=== PATIENT | male | born 1950 | race Caucasian/White ===

== ENCOUNTER → 2016-12-29 | Outpatient (CLI) | payer MEDICARE, OTHER ==
[2016-12-29 08:15] LABS: Blood Urea Nitrogen 9 mg/dL (9-20); Non-African American GFR(MDRD) >60 (>60 ml/min/1.73 sqM)
--- NOTE | 2016-12-29 11:31 | CT ---
EXAMINATION TYPE: CT abdomen pelvis wo/w con DATE OF EXAM: 12/29/2016 8:53 AM COMPARISON: NONE INDICATION: RUQ abdominal pain-Colicky DLP: 2900 mGycm, Automated exposure control for dose reduction was used. CONTRAST: 100 ml mL of Omnipaque 300. Study performed with Oral Contrast TECHNIQUE: Axial images were obtained from above the diaphragm to the pubic rami in the axial plane a t 5 mm thick sections. Reconstructed images are reviewed on the computer in the coronal plane. FINDINGS: Limited CT sections are obtained the lung bases. The lung bases are clear. CT ABDOMEN: Liver: Normal Spleen: There are a few small calcified granuloma within the spleen. Pancreas: Normal Adrenal glands: The adrenal glands are normal. Gallbladder: Normal Kidneys: No masses are evident. No hydronephrosis is present. There is a 2.3 cm cyst measuring 0 Ho unsfield units which is exophytic from the posterior medial superior right kidney. No additional chuyita l cysts are evident. No renal stones are evident. Aorta: Vascular calcification is within the aorta. Inferior vena cava: Normal. CT PELVIS: Loops of bowel within the abdomen and pelvis are normal. There are loops of bowel which are incom pletely distended or lack oral contrast limiting their evaluation. Appendix: Normal as visualized. Urinary bladder: Normal. Genitourinary structures: Prostate contains calcification Osseous structures: No suspicious lytic or sclerotic lesions. IMPRESSIONS: 1. Exophytic cyst superior medial right kidney 2. No acute abnormality
== END | disposition home or self-care (01) ==
LOC: RADCTMAIN 07:21
PROVIDERS: ATTEND Internal Medicine
DX: N28.1 Cyst of kidney, acquired (principal); R10.31 Right lower quadrant pain; R10.2 Pelvic and perineal pain
CPT/HCPCS: 82565; 84520; 74178; Q9967

== ENCOUNTER → 2017-03-21 | Outpatient (CLI) | payer MEDICARE, OTHER ==
[2017-03-21 13:23] LABS: Blood Urea Nitrogen 8 mg/dL (9-20); Non-African American GFR(MDRD) >60 (>60 ml/min/1.73 sqM)
--- NOTE | 2017-03-21 15:28 | CT ---
EXAMINATION TYPE: CT pelvis w con DATE OF EXAM: 03/21/2017 3:06 PM COMPARISON: CT abdomen pelvis 29 December 2016 HISTORY: RLQ pain CT DLP: 625.4 mGycm Automated exposure control for dose reduction was used. TECHNIQUE: Helical acquisition of images from the lung bases through the pelvis have been completed. CONTRAST: Performed with Oral Contrast and with IV Contrast, patient injected with 100 mL of Omnipaque 300. FINDINGS: The exophytic cyst at the upper pole of the right kidney is again noted. Visualized portions of the p ancreas, left kidney and right kidney show no definite abnormality. There is no bowel obstruction. Th e appendix is normal. There is nonspecific thickening of the sigmoid colon wall, this could be due to lack of distention or muscular hypertrophy, cannot exclude a mucosal lesion. Diverticular changes ar e also noted associated with the colon. There is no pelvic adenopathy, no evident hernia. No free flu id within the pelvis. Urinary bladder is contracted but shows a thickened wall. Prostate is enlarged and shows associated calcifications. Degenerative disc changes are present in the lower lumbar spine, there is a spinal curvature. Multilevel facet arthropathy changes are also present. Suspect spinal s tenosis at L4-5, there is retrolisthesis grade 1 L4-5. IMPRESSION: FINDINGS SUGGEST CHRONIC BLADDER OUTLET OBSTRUCTION DUE TO PROSTATIC HYPERTROPHY. 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 SCOLIOSIS. DIVERTICULOSIS. DIFFICULT TO EXCLUDE A MUCO DENTON LESION WITHIN THE COLON, CONSIDER BOWEL SURVEILLANCE IF THIS HAS NOT BEEN PERFORMED. NORMAL APPEN DANIA.
== END | disposition home or self-care (01) ==
LOC: RADCTMAIN 12:41
PROVIDERS: ATTEND Internal Medicine
DX: R10.2 Pelvic and perineal pain (principal); K57.90 Diverticulosis of intestine, part unspecified, without perforation or abscess without bleeding; N50.819 Testicular pain, unspecified
CPT/HCPCS: 72193; 82565; 84520

== ENCOUNTER → 2017-07-20 | Outpatient (CLI) | payer MEDICARE, OTHER ==
--- NOTE | 2017-07-21 09:07 | XR ---
EXAMINATION TYPE: XR chest 2V DATE OF EXAM: 07/20/2017 COMPARISON: NONE TECHNIQUE: PA and lateral views submitted. HISTORY: Cough FINDINGS: The lungs are clear and there is no pneumothorax, pleural effusion, or focal pneumonia. Hypertrophi c and degenerative change of the spine. Hyperinflation suggests COPD. No overt failure. Chronic appea ring rib deformity seen. Arthropathy of the shoulders and biapical pleural thickening. IMPRESSION: 1. No acute process.
== END | disposition home or self-care (01) ==
LOC: RADXRMAIN 16:00
PROVIDERS: ATTEND Internal Medicine
DX: R05 Cough (principal); Z86.79 Personal history of other diseases of the circulatory system
CPT/HCPCS: 71020; 93005

== ENCOUNTER → 2017-07-29 | Outpatient (CLI) | payer MEDICARE, OTHER ==
--- NOTE | 2017-07-29 16:27 | US ---
EXAMINATION TYPE: US thyroid st tissue head/neck DATE OF EXAM: 07/29/2017 COMPARISON: NONE CLINICAL HISTORY: E04.9 Goiter. GLAND SIZE: Right Lobe: 4.6 x 2.0 x 1.5 cm Overall Parenchyma: homogenous Left Lobe: 4.4 x 1.3 x 1.0 cm Overall Parenchyma: homogeneous Isthmus Thickness: 0.5 cm NODULES RIGHT: # of nodules measured on right: 0 LEFT: # of nodules measured on left: 0 ISTHMUS: # of nodules measured in the isthmus: 0 Bilateral neck scanned, no evidence of lymphadenopathy. IMPRESSION: Slightly prominent size of the homogeneous thyroid gland with no discrete nodule.
--- NOTE | 2017-07-30 13:20 | ECHOF ---
Referral Reason:PALPITATION ABN ECG MEASUREMENTS -------- HEIGHT: 180.3 cm WEIGHT: 90.7 kg BP: 160/92 RVIDd: 3.7 cm (< 3.3) IVSd: 1.1 cm (0.6 - 1.1) LVIDd: 4.1 cm (3.9 - 5.3) LVPWd: 1.1 cm (0.6 - 1.1) IVSs: 1.7 cm LVIDs: 2.5 cm LVPWs: 1.6 cm LAESV Index (A-L): 19.65 ml/m Ao Diam: 3.8 cm (2.0 - 3.7) AV Cusp: 1.1 cm (1.5 - 2.6) LA Diam: 2.8 cm (2.7 - 3.8) MV E Azael: 0.82 m/s MV DecT: 249 ms MV A Azael: 0.58 m/s MV E/A Ratio: 1.41 AR PHT: 379 ms RAP: 5.00 mmHg RVSP: 38.03 mmHg FINDINGS -------- Sinus rhythm. This was a technically adequate study. The left ventricular size is normal. Left ventricular wall thickness is normal. Overall left ventricular systolic function is normal with, an EF between 60 - 65 %. The right ventricle is normal in size and function. Normal LA size by volume 22+/-6 ml/m2. The right atrium is normal in size. Aortic valve is trileaflet and is mildly thickened. There is mild aortic regurgitation. There is no evidence of aortic stenosis. Normal appearing mitral valve. There is trace mitral regurgitation. Mild tricuspid regurgitation present. There is borderline pulmonary artery hypertension. The right ventricular systolic pressure, as measured by Doppler, is 38.03mmHg. The pulmonic valve was not well visualized. The aortic root size is normal. Normal inferior vena cava with normal inspiratory collapse consistent with estimated right atrial pressure of 5 mmHg. The pericardium is normal. There is no pericardial effusion. CONCLUSIONS -------- 1. Sinus rhythm. 2. There is borderline pulmonary artery hypertension. 3. The right ventricular systolic pressure, as measured by Doppler, is 38.03mmHg. 4. The aortic root size is normal. 5. This was a technically adequate study. 6. The left ventricular size is normal. 7. Overall left ventricular systolic function is normal with, an EF between 60 - 65 %. 8. Normal LA size by volume 22+/-6 ml/m2. 9. Aortic valve is trileaflet and is mildly thickened. 10. There is mild aortic regurgitation. 11. There is trace mitral regurgitation. 12. Mild tricuspid regurgitation present. [employer] CAR[employer] AGENT: Prasanna Escobedo RDCS
--- NOTE | 2017-08-03 11:20 | P.ARTDOP ---
Arterial Doppler LOWER EXTREMITY ARTERIAL DOPPLER: DATE OF SERVICE: 07/29/2017 Reason for study: Not given. Doppler waveforms: Multiphasic bilaterally throughout. Pulse volume recording: Normal configuration. Pressure gradients: None. Ankle-brachial indices: Greater than 1 bilaterally. Toe pressures: [] on the right, [] on the left Impression: Normal study.
== END | disposition home or self-care (01) ==
LOC: RADUSWWP 14:40
PROVIDERS: ATTEND Internal Medicine
DX: I34.0 Nonrheumatic mitral (valve) insufficiency (principal); I27.2 Other secondary pulmonary hypertension; R59.0 Localized enlarged lymph nodes; R10.2 Pelvic and perineal pain; I73.9 Peripheral vascular disease, unspecified; E04.9 Nontoxic goiter, unspecified
CPT/HCPCS: 76536; 93306; 93923

== ENCOUNTER 2018-11-20 12:33 | Emergency (ER) | payer MEDICARE, OTHER ==
[2018-11-20 14:00] VITALS: RESP 18
[2018-11-20 15:25] LABS: ALT 44 U/L (21-72); AST 40 U/L (17-59); Albumin 4.5 g/dL (3.5-5.0); Alkaline Phosphatase 50 U/L (38-126); Amylase 68 U/L (30-110); Anion Gap 7 mmol/L; Blood Urea Nitrogen 13 mg/dL (9-20); Calcium 9.2 mg/dL (8.4-10.2); Carbon Dioxide 25 mmol/L (22-30); Chloride 107 mmol/L (98-107); Glucose 102 mg/dL (74-99); Lipase 93 U/L (23-300); Potassium 4.1 mmol/L (3.5-5.1); Sodium 139 mmol/L (137-145); Total Bilirubin 0.9 mg/dL (0.2-1.3)
[2018-11-20 15:26] LABS: Basophils % (A) 1 %; Eosinophils % (A) 0 %; HCT 43.8 % (39.0-53.0); HGB 13.9 gm/dL (13.0-17.5); Lymphocytes # (A) 1.6 k/uL (1.0-4.8); Lymphocytes % (A) 27 %; MCH 27.5 pg (25.0-35.0); MCHC 31.8 g/dL (31.0-37.0); MCV 86.5 fL (80.0-100.0); Monocytes # (A) 0.3 k/uL (0-1.0); Monocytes % (A) 5 %; Neutrophils # (A) 3.8 k/uL (1.3-7.7); Neutrophils % (A) 64 %; Platelet Count 154 k/uL (150-450); RBC 5.06 m/uL (4.30-5.90)
[2018-11-20 15:37] LABS: Creatine Kinase 63 U/L (55-170)
[2018-11-20 15:51] LABS: Creatine Kinase MB 1.3 ng/mL (0.0-2.4); Troponin I <0.012 ng/mL (0.000-0.034)
--- NOTE | 2018-11-20 16:16 | XR ---
EXAMINATION TYPE: XR chest 2V DATE OF EXAM: 11/20/2018 COMPARISON: Prior chest x-ray 07/20/2017 HISTORY: Right-sided abdominal pain, dizziness TECHNIQUE: Frontal and lateral views of the chest are obtained. FINDINGS: There is no focal air space opacity, pleural effusion, or pneumothorax seen. The cardiac silhouette size is within normal limits. The osseous structures are stable, multiple old left-sided rib fractures are again noted. There is persistent blunting of the left costophrenic angle likely du e to pleural reaction. Prominent lung volume may be indicative of underlying COPD. IMPRESSION: No acute cardiopulmonary process.
--- NOTE | 2018-11-20 16:21 | CT ---
EXAMINATION TYPE: CT abdomen pelvis w con DATE OF EXAM: 11/20/2018 COMPARISON: 03/21/2017 HISTORY: Right sided abdominal pain. CT DLP: 747.2 mGycm Automated exposure control for dose reduction was used. TECHNIQUE: Helical acquisition of images was performed from the lung bases through the pelvis. CONTRAST: Performed without Oral Contrast and with IV Contrast, patient injected with 100 mL of Isovue 300. FINDINGS: LUNG BASES: There is minimal dependent subsegmental atelectasis. There is subpleural fat deposition o n the left. There is a moderate pericardial effusion with 1.4 cm greatest thickness. LIVER/GB: No significant abnormality is appreciated. PANCREAS: No significant abnormality is seen. SPLEEN: Benign splenic granuloma is present. ADRENALS: No significant abnormality is seen. KIDNEYS: The kidneys enhance symmetrically without hydronephrosis. Right renal cysts are seen measuri ng 2.5 cm and 1.5 cm. FREE AIR: No free air is visualized. REPRODUCTIVE ORGANS: Prostate gland is heterogenous containing central zone calcifications. URINARY BLADDER: Incompletely distended. OSSEOUS STRUCTURES: Mild multilevel degenerative changes of the lumbar spine are seen. There is stra ightening of usual lumbar lordosis. BOWEL: There are scattered colonic diverticula. Thickening of the sigmoid and descending colon colon may relate to incomplete distention or chronic diverticulitis. No pericolonic fat stranding to sugge st acute diverticulitis. No right lower quadrant fat stranding to suggest acute appendicitis. There i s wall thickening of the entirety of the stomach that could relate to incomplete distention. ADENOPATHY: No greater than 1 cm short axis of note is seen within the abdomen or pelvis. IMPRESSION: 1. NO ACUTE INTRA-ABDOMINAL PROCESS IS SEEN. LONG SEGMENT SIGMOID AND DESCENDING COLONIC WALL THICKEN ING COULD RELATE TO CHRONIC DIVERTICULITIS THERE ARE NUMEROUS COLONIC DIVERTICULA. NO EVIDENCE OF ACUTE DIVERTICULITIS NOR BOWEL OBSTRUCTION. MODERATE AMOUNT RETAINED COLONIC STOOL IS SEEN. 2. MODERATE PERICARDIAL EFFUSION. 3. DIFFUSE GASTRIC WALL THICKENING THAT CAN BE SEEN IN GASTRITIS ALTHOUGH COULD RELATE TO INCOMPLETE DISTENTION. GASTRIC NEOPLASMS ARE A MUCH LESS LIKELY CONSIDERATION.
[2018-11-20 16:34] VITALS: BP 124/85; PULSE 92; TEMP 97.1
[2018-11-20 16:34] LABS: Appearance,Urine Clear (Clear); Bilirubin,Urine Negative (Negative); Blood,Urine Negative (Negative); Color,Urine Yellow; Glucose,Urine (UA) Negative (Negative); Ketones,Urine Negative (Negative); Leukocyte Esterase,Urine Negative (Negative); Nitrite,Urine Negative (Negative); PH, Urine 5.5 (5.0-8.0); Protein,Urine Trace (Negative); Specific Gravity,Urine 1.012 (1.001-1.035); Urobilinogen,Urine <2.0 mg/dL (<2.0)
--- NOTE | 2018-11-20 16:45 | ED ---
Abdominal Pain HPI - General Chief Complaint: Abdominal Pain Stated Complaint: Abd Pain, Vision Disturbance Time Seen by Provider: 11/20/18 15:33 Source: patient Mode of arrival: ambulatory Limitations: no limitations - History of Present Illness Initial Comments: 68-year-old male with past medical history of breast Parkinson's right presents today for abdominal pain times one year. Patient states he has had abdominal pain diffusely of his abdomen for years, he states has been increasing for the past year. He states he describes as a "sour stomach". Patient is having difficulty elaborating on this description. Patient denies back pain or radiation of the abdominal pain. He states it moves in location. Patient states he's had decreased appetite for the past year causing weight loss. Patient states that he occasionally has had blood occasionally in bowel movements. Patient denies any nausea, vomiting, current diarrhea, constipation , abdominal surgeries, chest pain, dyspnea, dyspnea on exertion. I addressed patient stated visual changes in triage, he states upon review of systems in triage he noted visual changes, he states that he has blurred vision that is chronic denies any acute changes, diplopia or vision loss. On arrival patient' s vital signs stable he is well-appearing, no signs of acute distress. - Related Data Home Medications Medication Instructions Recorded Confirmed ALPRAZolam [Xanax] 2 mg PO TID PRN 05/24/17 11/20/18 Atorvastatin [Lipitor] 20 mg PO DAILY 05/24/17 11/20/18 Budesonide/Formoterol Fumarate 2 puff INHALATION RT-BID 05/24/17 11/20/18 [Symbicort 160-4.5 Mcg Inhaler] Enalapril [Vasotec] 10 mg PO QAM 05/24/17 11/20/18 Finasteride [Proscar] 5 mg PO DAILY 05/24/17 11/20/18 HYDROcodone/APAP 10-325MG [Tyro 1 tab PO QID PRN 05/24/17 11/20/18 10-325] Omeprazole [PriLOSEC] 20 mg PO BID 05/24/17 11/20/18 quiNIDine SULFATE 400 mg PO Q6H 05/24/17 11/20/18 Ergocalciferol (Vitamin D2) 50,000 unit PO Q7D 11/20/18 11/20/18 [Vitamin D2] Fluticasone Nasal [place] [Flonase 2 sprays EA NOSTRIL DAILY 11/20/18 11/20/18 Nasal [place]] Previous Rx's Medication Instructions Recorded Ciprofloxacin HCl [Cipro] 500 mg PO Q12H 7 Days #14 tab 11/20/18 Docusate [Colace] 100 mg PO DAILY 7 Days #7 capsule 11/20/18 metroNIDAZOLE [Flagyl] 500 mg PO Q8HR 7 Days #21 tab 11/20/18 Allergies Allergy/AdvReac Type Severity Reaction Status Date / Time No Known Allergies Allergy Verified 11/20/18 15:56 Review of Systems ROS Statement: Those systems with pertinent positive or pertinent negative responses have been documented in the HPI. ROS Other: All systems not noted in ROS Statement are negative. 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26 History of Any Multi-Drug Resistant Organisms: None Reported Past Surgical History: Tonsillectomy Additional Past Surgical History / Comment(s): cardiac mapping Past Anesthesia/Blood Transfusion Reactions: No Reported Reaction Past Psychological History: No Psychological Hx Reported Smoking Status: Former smoker - Past Family History Mother Family Medical History: Cancer Additional Family Medical History / Comment(s): leukemia Father Additional Family Medical History / Comment(s): heart condition General Exam - General Exam Comments Initial Comments: General: The patient is awake and alert, in no distress, and does not appear acutely ill. No noted jaundice. Eye: Pupils are equal, round and reactive to light, extra-ocular movements are intact. No nystagmus. There is normal conjunctiva bilaterally. No signs of icterus. Ears, nose, mouth and throat: There are moist mucous membranes and no oral lesions. Neck: The neck is supple, there is no tenderness or JVD. Cardiovascular: There is a regular rate and rhythm. No murmur, rub or gallop is appreciated. Respiratory: Lungs are clear to auscultation, respirations are non-labored, breath sounds are equal. No wheezes, stridor, rales, or rhonchi. Gastrointestinal: No noted diaphoresis, jaundice, pallor, protecting postures or squirming. Symmetrical pigmentation of abdomen without signs of inflammation.. Umbilicus mildline, inverted without swelling. No dilated veins. Abdomen contour obese, no noted abdominal distention. No visible masses. No peristalsis, aortic pulsations, or ventral hernia. Bowel sounds audible in all 4 quadrants, unremarkable. No friction rubs or venous hums. No epigastic, hepatic or abdominal bruits. Very mild tenderness to deep palpation. No tenderness of light palpation of the abdomen. There is diffuse, patient is unable to put localized pain. Liver edge, not palpable. Spleen edge, right and left kidney not palpable. Superior bladder margin non-tender. Special Testing: Negative [place], Rovsing, McBurney, Nini, cutaneous hyperesthesia. Iliopsoas and obturator tests negative bilaterally. Negative Heel Jar test/ omar sign. No CVA tenderness. Digital rectal exam-no gross blood, no palpable hemorrhoids. Enlargement of prostate noted. Negative flores turners or cullens sign Musculoskeletal: Normal ROM, no tenderness. Strength 5/5. Sensation intact. DP pulses equal bilaterally 2+. Neurological: A&O x 3. CN II-XII intact, There are no obvious motor or sensory deficits. Coordination appears grossly intact. Speech is normal. Skin: Skin is warm and dry and no rashes or lesions are noted. No lower extremity edema. Psychiatric: Cooperative, appropriate mood & affect, normal judgment. Limitations: no limitations Course Vital Signs 11/20/18 11/20/18 13:58 16:34 Temperature 98.7 F 97.1 F L Pulse Rate 81 92 Respiratory 18 18 Rate Blood Pressure 144/80 124/85 O2 Sat by Pulse 98 98 Oximetry Medical Decision Making - Medical Decision Making 8-year-old male with complaints of chronic diffuse abdominal pain times one year. Laboratory studies unremarkable. Occult blood negative. CT revealed findings concerning for acute diverticulitis. Chest x-ray negative. Patient be started on Flagyl as well as ciprofloxacin. At this time do not feel patient is acute abdomen. Given patient's age and complaints of diffuse nonspecific abdominal pain advanced triage protocols performed. 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 (-) Troponins, no suspicion for ACS given pt history and PE findings. Pt did have a small pericardial effusion on CT, this was discussed with pt. At this time feel patient is stable for discharge with antibiotic regimen as well as gastroenterology follow-up, as well as follow up with primary care provider for evaluation of pericardial effusion including echocardiogram. I discussed the importance of close follow-up as well as return for worsening symptoms including any dyspnea, chest pain or dyspnea on exertion, patient continues to deny the symptoms and verbalized understanding of return parameters. Patient appears to be a compliant patient. I discussed the case in detail with Dr. Yanez who reviewed laboratory studies as well as pertinent history, agreed with impression and plan. Pt discharged in stable condition appearing well. - Lab Data Result diagrams: 11/20/18 14:56 11/20/18 14:56 Lab Results 11/20/18 11/20/18 11/20/18 Range/Units 14:56 14:56 14:56 WBC 6.0 (3.8-10.6) k/uL RBC 5.06 (4.30-5.90) m/uL Hgb 13.9 (13.0-17.5) gm/dL Hct 43.8 (39.0-53.0) % MCV 86.5 (80.0-100.0) fL MCH 27.5 (25.0-35.0) pg MCHC 31.8 (31.0-37.0) g/dL RDW 14.0 (11.5-15.5) % Plt Count 154 (150-450) k/uL Neutrophils % 64 % Lymphocytes % 27 % Monocytes % 5 % Eosinophils % 0 % Basophils % 1 % Neutrophils # 3.8 (1.3-7.7) k/uL Lymphocytes # 1.6 (1.0-4.8) k/uL Monocytes # 0.3 (0-1.0) k/uL Eosinophils # 0.0 (0-0.7) k/uL Basophils # 0.0 (0-0.2) k/uL Sodium 139 (137-145) mmol/L Potassium 4.1 (3.5-5.1) mmol/L Chloride 107 (98-107) mmol/L Carbon Dioxide 25 (22-30) mmol/L Anion Gap 7 mmol/L BUN 13 (9-20) mg/dL Creatinine 0.97 (0.66-1.25) mg/dL Est GFR (CKD-EPI)AfAm >90 (>60 ml/min/1.73 sqM) Est GFR (CKD-EPI)NonAf 81 (>60 ml/min/1.73 sqM) Glucose 102 H (74-99) mg/dL Calcium 9.2 (8.4-10.2) mg/dL Total Bilirubin 0.9 (0.2-1.3) mg/dL AST 40 (17-59) U/L ALT 44 (21-72) U/L Alkaline Phosphatase 50 (38-126) U/L Total Creatine Kinase 63 (55-170) U/L CK-MB (CK-2) 1.3 (0.0-2.4) ng/mL CK-MB (CK-2) Rel Index 2.1 Troponin I <0.012 (0.000-0.034) ng/mL Total Protein 7.0 (6.3-8.2) g/dL Albumin 4.5 (3.5-5.0) g/dL Amylase 68 (30-110) U/L Lipase 93 (23-300) U/L Urine Color Urine Appearance (Clear) Urine pH (5.0-8.0) Ur Specific [place] (1.001-1.035) Urine Protein (Negative) Urine Glucose (UA) (Negative) Urine Ketones (Negative) Urine Blood (Negative) Urine Nitrite (Negative) Urine Bilirubin (Negative) Urine Urobilinogen (<2.0) mg/dL Ur Leukocyte Esterase (Negative) Stool Occult Blood (Negative) 11/20/18 11/20/18 Range/Units 14:57 14:57 WBC (3.8-10.6) k/uL RBC (4.30-5.90) m/uL Hgb (13.0-17.5) gm/dL Hct (39.0-53.0) % MCV (80.0-100.0) fL MCH (25.0-35.0) pg MCHC (31.0-37.0) g/dL RDW (11.5-15.5) % Plt Count (150-450) k/uL Neutrophils % % Lymphocytes % % Monocytes % % Eosinophils % % Basophils % % Neutrophils # (1.3-7.7) k/uL Lymphocytes # (1.0-4.8) k/uL Monocytes # (0-1.0) k/uL Eosinophils # (0-0.7) k/uL Basophils # (0-0.2) k/uL Sodium (137-145) mmol/L Potassium (3.5-5.1) mmol/L Chloride (98-107) mmol/L Carbon Dioxide (22-30) mmol/L Anion Gap mmol/L BUN (9-20) mg/dL Creatinine (0.66-1.25) mg/dL Est GFR (CKD-EPI)AfAm (>60 ml/min/1.73 sqM) Est GFR (CKD-EPI)NonAf (>60 ml/min/1.73 sqM) Glucose (74-99) mg/dL Calcium (8.4-10.2) mg/dL Total Bilirubin (0.2-1.3) mg/dL AST (17-59) U/L ALT (21-72) U/L Alkaline Phosphatase (38-126) U/L Total Creatine Kinase (55-170) U/L CK-MB (CK-2) (0.0-2.4) ng/mL CK-MB (CK-2) Rel Index Troponin I (0.000-0.034) ng/mL Total Protein (6.3-8.2) g/dL Albumin (3.5-5.0) g/dL Amylase (30-110) U/L Lipase (23-300) U/L Urine Color Yellow Urine Appearance Clear (Clear) Urine pH 5.5 (5.0-8.0) Ur Specific [place] 1.012 (1.001-1.035) Urine Protein Trace H (Negative) Urine Glucose (UA) Negative (Negative) Urine Ketones Negative (Negative) Urine Blood Negative (Negative) Urine Nitrite Negative (Negative) Urine Bilirubin Negative (Negative) Urine Urobilinogen <2.0 (<2.0) mg/dL Ur Leukocyte Esterase Negative (Negative) Stool Occult Blood Negative (Negative) - EKG Data EKG Comments: A 12-lead EKG was performed and shows the following: Rate is 73bpm, and rhythm is normal sinus. There are normal QRS complexes and normal R-wave progression. ST segments have no elevation or depression. No delta waves in all leads, consistent with diagnosis of Navga-Whojoeole-Rcvpp. Otherwise normal EKG Disposition Clinical Impression: Diverticula of colon, Pericardial effusion, Diverticulitis Disposition: HOME SELF-CARE Condition: Good Instructions: Diverticulitis (ED) Additional Instructions: Please use medication as discussed. Please follow-up with family doctor in the next 2 days as scheduled. Recommend outpatient ECHO for evaluation of pericardial effusion. Please follow-up with gastroenterology in the next week as discussed. Please return to emergency room if the symptoms increase or worsen or for any other concerns, including chest pain or shortness of breath. Prescriptions: Ciprofloxacin HCl [Cipro] 500 mg PO Q12H 7 Days #14 tab Docusate [Colace] 100 mg PO DAILY 7 Days #7 capsule metroNIDAZOLE [Flagyl] 500 mg PO Q8HR 7 Days #21 tab Is patient prescribed a controlled substance at d/c from ED?: No Referrals: Jayda Sarabia MD [Primary Care Provider] - 1-2 days Sabas Whyte MD [STAFF PHYSICIAN] - 1-2 days Time of Disposition: 16:43
== END 2018-11-20 17:02 | disposition home or self-care (01) ==
LOC: EC 12:33
DX: K57.32 Diverticulitis of large intestine without perforation or abscess without bleeding (principal); K57.30 Diverticulosis of large intestine without perforation or abscess without bleeding; I31.3 Pericardial effusion (noninflammatory); H53.8 Other visual disturbances; E78.5 Hyperlipidemia, unspecified; I10 Essential (primary) hypertension; G20 Parkinson's disease; Z87.891 Personal history of nicotine dependence; Z79.51 Long term (current) use of inhaled steroids; Z79.899 Other long term (current) drug therapy
CPT/HCPCS: 99284; 36415; 93005; 80053; 82150; 82550; 82553; 83690; 84484; 85025; 82272; 81003; 71046; 74177; Q9967

== ENCOUNTER → 2020-08-29 | Outpatient (CLI) | payer MEDICARE ==
[2020-08-29 20:36] LABS: T4, Free (Free Thyroxine) 0.9 ng/dL (0.80-1.80)
== END | disposition home or self-care (01) ==
LOC: LABWHC1 13:52
PROVIDERS: ATTEND Psychiatry & Neurology Pain Medicine
DX: R41.3 Other amnesia (principal); R53.83 Other fatigue
CPT/HCPCS: 36415; 82607; 84439; 84443; 84481

== ENCOUNTER 2022-05-08 16:24 | Emergency (ER) | payer MEDICARE ==
[2022-05-08 16:32] VITALS: TEMP 98
--- NOTE | 2022-05-08 16:48 | ED ---
General Adult HPI - General Chief complaint: Arrhythmia/Palpitations Stated complaint: Misplaced Medication/wpw Time Seen by Provider: 05/08/22 16:42 Source: patient, family Mode of arrival: ambulatory Limitations: no limitations - History of Present Illness Initial comments: Patient presents to the ED with his son for evaluation. Per son, the patient h as Alzheimer's dementia, and son states that the patient misplaced his medications about 2 days ago. Son states that the patient has an appointment scheduled to see his primary care provider next week, but they have come to the ED today for medication refills. Son also states that the patient was complaining of having palpitations earlier today. Patient states that he felt anxious when he realized that he misplaced his medications, and he states that he had "heart fluttering" at that time. Patient denies having any palpitations or symptoms at this time. Patient's son states that they "searched all over", but could not find the patient's medications. Son states that the patient takes blood pressure medications, as well as medications for WPW syndrome. Patient denies having any pain, fever or chills, headache, focal neuro deficit, chest pain or pressure, dyspnea, dizziness, syncope, abdominal pain, nausea/vomiting/diarrhea, dysuria or urinary symptoms, or any other symptoms or complaints. - Related Data Home Medications Medication Instructions Recorded Confirmed ALPRAZolam [Xanax] 2 mg PO TID PRN 05/24/17 11/20/18 Atorvastatin [Lipitor] 20 mg PO DAILY 05/24/17 11/20/18 Budesonide/Formoterol Fumarate 2 puff INHALATION RT-BID 05/24/17 11/20/18 [Symbicort 160-4.5 Mcg Inhaler] Enalapril [Vasotec] 10 mg PO QAM 05/24/17 11/20/18 Finasteride [Proscar] 5 mg PO DAILY 05/24/17 11/20/18 HYDROcodone/APAP 10-325MG [[place] 1 tab PO QID PRN 05/24/17 11/20/18 10-325] Omeprazole [PriLOSEC] 20 mg PO BID 05/24/17 11/20/18 quiNIDine sulfate [quiNIDine 400 mg PO Q6H 05/24/17 11/20/18 SULFATE] Ergocalciferol (Vitamin D2) 50,000 unit PO Q7D 11/20/18 11/20/18 [Vitamin D2] Fluticasone Nasal [place] [Flonase 2 sprays EA NOSTRIL DAILY 11/20/18 11/20/18 Nasal [place]] Previous Rx's Medication Instructions Recorded Ciprofloxacin HCl [Cipro] 500 mg PO Q12H 7 Days #14 tab 11/20/18 Docusate [Colace] 100 mg PO DAILY 7 Days #7 capsule 11/20/18 metroNIDAZOLE [Flagyl] 500 mg PO Q8HR 7 Days #21 tab 11/20/18 ALPRAZolam [ALPRAZolam XR] 2 mg PO DAILY 3 Days #3 tab 05/08/22 Atorvastatin [Lipitor] 20 mg PO DAILY #14 tablet 05/08/22 Enalapril [Vasotec] 10 mg PO QAM #10 tablet 05/08/22 quiNIDine sulfate [Quinidine 400 mg PO Q6H #80 tab 05/08/22 Sulfate] Allergies Allergy/AdvReac Type Severity Reaction Status Date / Time No Known Allergies Allergy Verified 05/08/22 16:32 Review of Systems ROS Statement: Those systems with pertinent positive or pertinent negative responses have been documented in the HPI. ROS Other: All systems not noted in ROS Statement are negative. 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26 History of Any Multi-Drug Resistant Organisms: None Reported Past Surgical History: Tonsillectomy Additional Past Surgical History / Comment(s): cardiac mapping Past Anesthesia/Blood Transfusion Reactions: No Reported Reaction Past Psychological History: No Psychological Hx Reported Past Alcohol Use History: None Reported Past Drug Use History: None Reported - Past Family History Mother Family Medical History: Cancer Additional Family Medical History / Comment(s): leukemia Father Additional Family Medical History / Comment(s): heart condition General Exam Limitations: no limitations General appearance: alert, in no apparent distress Head exam: Present: atraumatic, normocephalic Eye exam: Present: normal appearance, EOMI ENT exam: Present: mucous membranes moist Neck exam: Present: other (Trachea is in midline) Respiratory exam: Present: normal lung sounds bilaterally. Absent: respiratory distress, wheezes, rales, rhonchi, stridor Cardiovascular Exam: Present: regular rate, normal rhythm, normal heart sounds, other (Normal radial pulses bilaterally) GI/Abdominal exam: Present: soft. Absent: distended, tenderness, guarding Extremities exam: Absent: tenderness, pedal edema Neurological exam: Present: alert, oriented X3, CN II-XII intact. Absent: motor sensory deficit Psychiatric exam: Present: normal affect, normal mood Skin exam: Present: warm, dry, intact, normal color Course Vital Signs 05/08/22 05/08/22 16:27 18:16 Temperature 98 F Pulse Rate 74 61 Respiratory 16 15 Rate Blood Pressure 110/79 136/85 O2 Sat by Pulse 96 97 Oximetry - Reevaluation(s) Reevaluation #1: 05/08/22 18:39 Patient denies development of any new symptoms while in the ED. Patient cont inues to deny having any palpitations in the ED. Patient remains in normal sinus rhythm on the monitoring engineer. Patient remains alert and breathing comfortably. Patient and son are aware the patient's test results, and they both feel comfortable with the patient being discharged home at this time. Will discharge patient home with short course refills for his quinidine, enalapril, atorvastatin and alprazolam prescriptions, as patient reports having misplaced those medications. I have instructed the patient and his son to have the patient follow up with his primary care provider next week for refills on his other medications, as well as more refills on these medications as needed. Patient and son feel comfortable with this plan. Will discharge patient home with his son at this time. EKG Findings - EKG Comments: EKG Findings:: Normal sinus rhythm, ventricular rate of 64 bpm, no ectopy, normal DC and QRS intervals, normal QT interval, normal axis, no ST or T-wave abnormality Medical Decision Making - Medical Decision Making Patient has been in normal sinus rhythm on the monitoring engineer while in the ED. Patient's EKG is fairly unremarkable. Patient's labs are also fairly unremarkable. Patient's vital signs are reassuring. Patient denies having any symptoms while in the ED. I have provided the patient with short course of refills on his more critical medications, and he is instructed to follow up closely with his primary care provider for further refills. Patient and son feel comfortable this plan. - Lab Data Result diagrams: 05/08/22 17:12 05/08/22 17:12 Lab Results 05/08/22 05/08/22 05/08/22 Range/Units 17:12 17:12 17:12 WBC 6.4 (3.8-10.6) k/uL RBC 4.44 (4.30-5.90) m/uL Hgb 12.8 L (13.0-17.5) gm/dL Hct 39.0 (39.0-53.0) % MCV 87.9 (80.0-100.0) fL MCH 28.9 (25.0-35.0) pg MCHC 32.8 (31.0-37.0) g/dL RDW 14.7 (11.5-15.5) % Plt Count 179 (150-450) k/uL MPV 8.1 Neutrophils % (Manual) 66 % Band Neuts % (Manual) 1 % Lymphocytes % (Manual) 26 % Monocytes % (Manual) 6 % Eosinophils % (Manual) 1 % Neutrophils # (Manual) 4.20 (1.3-7.7) k/uL Lymphocytes # (Manual) 1.66 (1.0-4.8) k/uL Monocytes # (Manual) 0.38 (0-1.0) k/uL Eosinophils # (Manual) 0.06 (0-0.7) k/uL Nucleated RBCs 0 (0-0) /100 WBC Manual Slide Review Performed PT 11.1 (9.0-12.0) sec INR 1.0 (<1.2) APTT 23.7 (22.0-30.0) sec Sodium 136 L (137-145) mmol/L Potassium 4.1 (3.5-5.1) mmol/L Chloride 104 (98-107) mmol/L Carbon Dioxide 24 (22-30) mmol/L Anion Gap 8 mmol/L BUN 21 H (9-20) mg/dL Creatinine 1.22 (0.66-1.25) mg/dL Est GFR (CKD-EPI)AfAm 68 (>60 ml/min/1.73 sqM) Est GFR (CKD-EPI)NonAf 59 (>60 ml/min/1.73 sqM) Glucose 91 (74-99) mg/dL Calcium 9.1 (8.4-10.2) mg/dL Magnesium 1.8 (1.6-2.3) mg/dL Total Bilirubin 1.1 (0.2-1.3) mg/dL AST 36 (17-59) U/L ALT 33 (4-49) U/L Alkaline Phosphatase 67 (38-126) U/L Troponin I (0.000-0.034) ng/mL Total Protein 6.5 (6.3-8.2) g/dL Albumin 4.2 (3.5-5.0) g/dL 05/08/22 Range/Units 17:12 WBC (3.8-10.6) k/uL RBC (4.30-5.90) m/uL Hgb (13.0-17.5) gm/dL Hct (39.0-53.0) % MCV (80.0-100.0) fL MCH (25.0-35.0) pg MCHC (31.0-37.0) g/dL RDW (11.5-15.5) % Plt Count (150-450) k/uL MPV Neutrophils % (Manual) % Band Neuts % (Manual) % Lymphocytes % (Manual) % Monocytes % (Manual) % Eosinophils % (Manual) % Neutrophils # (Manual) (1.3-7.7) k/uL Lymphocytes # (Manual) (1.0-4.8) k/uL Monocytes # (Manual) (0-1.0) k/uL Eosinophils # (Manual) (0-0.7) k/uL Nucleated RBCs (0-0) /100 WBC Manual Slide Review PT (9.0-12.0) sec INR (<1.2) APTT (22.0-30.0) sec Sodium (137-145) mmol/L Potassium (3.5-5.1) mmol/L Chloride (98-107) mmol/L Carbon Dioxide (22-30) mmol/L Anion Gap mmol/L BUN (9-20) mg/dL Creatinine (0.66-1.25) mg/dL Est GFR (CKD-EPI)AfAm (>60 ml/min/1.73 sqM) Est GFR (CKD-EPI)NonAf (>60 ml/min/1.73 sqM) Glucose (74-99) mg/dL Calcium (8.4-10.2) mg/dL Magnesium (1.6-2.3) mg/dL Total Bilirubin (0.2-1.3) mg/dL AST (17-59) U/L ALT (4-49) U/L Alkaline Phosphatase (38-126) U/L Troponin I 0.016 (0.000-0.034) ng/mL Total Protein (6.3-8.2) g/dL Albumin (3.5-5.0) g/dL Disposition Clinical Impression: Palpitations, Medication refill Disposition: HOME SELF-CARE Condition: Stable Instructions (If sedation given, give patient instructions): Heart Palpitations (ED), Medicine Refill (ED) Additional Instructions: Return to the ER immediately should you develop persistent or worsening heart palpitations, chest pain, shortness of breath, feeling dizzy or faint, a fever, or new or worsening symptoms. Follow up closely with your primary care provider. Prescriptions: ALPRAZolam [ALPRAZolam XR] 2 mg PO DAILY 3 Days #3 tab Atorvastatin [Lipitor] 20 mg PO DAILY #14 tablet quiNIDine sulfate [Quinidine Sulfate] 400 mg PO Q6H #80 tab Enalapril [Vasotec] 10 mg PO QAM #10 tablet Is patient prescribed a controlled substance at d/c from ED?: No Referrals: Jayda Sarabia MD [Primary Care Provider] - 1-2 days Time of Disposition: 18:44
[2022-05-08 17:26] LABS: Partial Thromboplastin Time 23.7 sec (22.0-30.0); Prothrombin Time 11.1 sec (9.0-12.0)
[2022-05-08 17:28] LABS: Albumin 4.2 g/dL (3.5-5.0); Calcium 9.1 mg/dL (8.4-10.2); Magnesium 1.8 mg/dL (1.6-2.3); Potassium 4.1 mmol/L (3.5-5.1); Total Bilirubin 1.1 mg/dL (0.2-1.3); Total Protein 6.5 g/dL (6.3-8.2)
[2022-05-08 17:38] LABS: HGB 12.8 gm/dL (13.0-17.5); MCH 28.9 pg (25.0-35.0); MCHC 32.8 g/dL (31.0-37.0); MCV 87.9 fL (80.0-100.0); Mean Platelet Volume 8.1; Platelet Count 179 k/uL (150-450); RBC 4.44 m/uL (4.30-5.90); RDW 14.7 % (11.5-15.5); WBC 6.4 k/uL (3.8-10.6)
[2022-05-08 18:18] LABS: Band Neutrophils % 1 %; Eosinophils # (M) 0.06 k/uL (0-0.7); Lymphocytes # (M) 1.66 k/uL (1.0-4.8); Monocytes # (M) 0.38 k/uL (0-1.0); Neutrophils % (M) 66 %; Nucleated Red Blood Cells 0 /100 WBC (0-0); Total Cells Counted 100
[2022-05-08 19:00] VITALS: BP 150/97; PULSE 81; RESP 17
== END 2022-05-08 18:59 | disposition home or self-care (01) ==
LOC: EC 16:24
DX: R00.2 Palpitations (principal); Z76.0 Encounter for issue of repeat prescription; E78.5 Hyperlipidemia, unspecified; I10 Essential (primary) hypertension
CPT/HCPCS: 36415; 80053; 83735; 84484; 85025; 85610; 85730; 93005; 99285

== ENCOUNTER 2024-09-22 12:25 | Emergency (ER) | payer MEDICARE ==
--- NOTE | 2024-09-22 13:07 | ED ---
Abdominal Pain HPI - General Stated Complaint: Lump in L groin area Time Seen by Provider: 09/22/24 12:41 Source: patient, family Mode of arrival: ambulatory Limitations: no limitations - History of Present Illness Initial Comments: This is a 74-year-old male presenting with ex [id number], with history of dementia, presenting with left inguinal mass that is growing larger x 3 days. Patient denies associated abdominal pain, overlying color change, hematochezia, melena, urinary symptoms, nausea, vomiting or diarrhea/constipation. Denies recent straining, heavy lifting or history of hernias. Onset/Timin -: days(s) - Related Data Home Medications Medication Instructions Recorded Confirmed ALPRAZolam [Xanax] 2 mg PO TID PRN 05/24/17 11/20/18 Atorvastatin [Lipitor] 20 mg PO DAILY 05/24/17 11/20/18 Budesonide/Formoterol Fumarate 2 puff INHALATION RT-BID 05/24/17 11/20/18 [Symbicort 160-4.5 Mcg Inhaler] Enalapril [Vasotec] 10 mg PO QAM 05/24/17 11/20/18 Finasteride [Proscar] 5 mg PO DAILY 05/24/17 11/20/18 HYDROcodone/APAP 10-325MG [[place] 1 tab PO QID PRN 05/24/17 11/20/18 10-325] Omeprazole [PriLOSEC] 20 mg PO BID 05/24/17 11/20/18 quiNIDine sulfate [quiNIDine 400 mg PO Q6H 05/24/17 11/20/18 SULFATE] Ergocalciferol (Vitamin D2) 50,000 unit PO Q7D 11/20/18 11/20/18 [Vitamin D2] Fluticasone Nasal [place] [Flonase 2 sprays EA NOSTRIL DAILY 11/20/18 11/20/18 Nasal [place]] Previous Rx's Medication Instructions Recorded Ciprofloxacin HCl [Cipro] 500 mg PO Q12H 7 Days #14 tab 11/20/18 Docusate [Colace] 100 mg PO DAILY 7 Days #7 capsule 11/20/18 metroNIDAZOLE [Flagyl] 500 mg PO Q8HR 7 Days #21 tab 11/20/18 ALPRAZolam [ALPRAZolam XR] 2 mg PO DAILY 3 Days #3 tab 05/08/22 Atorvastatin [Lipitor] 20 mg PO DAILY #14 tablet 05/08/22 Enalapril [Vasotec] 10 mg PO QAM #10 tablet 05/08/22 quiNIDine sulfate [Quinidine 400 mg PO Q6H #80 tab 05/08/22 Sulfate] Allergies Allergy/AdvReac Type Severity Reaction Status Date / Time No Known Allergies Allergy Verified 09/22/24 13:20 Review of Systems ROS Statement: Those systems with pertinent positive or pertinent negative responses have been documented in the HPI. ROS Other: All systems not noted in ROS Statement are negative. 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26 History of Any Multi-Drug Resistant Organisms: None Reported Past Surgical History: Tonsillectomy Additional Past Surgical History / Comment(s): cardiac mapping Past Anesthesia/Blood Transfusion Reactions: No Reported Reaction Past Psychological History: No Psychological Hx Reported Past Alcohol Use History: None Reported Past Drug Use History: None Reported - Past Family History Mother Family Medical History: Cancer Additional Family Medical History / Comment(s): leukemia Father Additional Family Medical History / Comment(s): heart condition General Exam - General Exam Comments Initial Comments: Visual Physical Exam Vital signs reviewed General: Well-appearing, nontoxic, no acute distress. Head: Normocephalic, atraumatic Eyes: PERRLA, EOMI ENT: Airway patent Chest: Nonlabored breathing Skin: No visual rash, normal skin tone Neuro: Alert and oriented 3 Musculoskeletal: No gross abnormalities General appearance: alert, in no apparent distress Head exam: Present: atraumatic, normocephalic, normal inspection Eye exam: Present: normal appearance, PERRL, EOMI. Absent: scleral icterus, conjunctival injection, periorbital swelling ENT exam: Present: normal exam, mucous membranes moist Neck exam: Present: normal inspection. Absent: tenderness, meningismus, lymphadenopathy Respiratory exam: Present: normal lung sounds bilaterally. Absent: respiratory distress, wheezes, rales, rhonchi, stridor Cardiovascular Exam: Present: regular rate, normal rhythm, normal heart sounds. Absent: systolic murmur, diastolic murmur, rubs, gallop, clicks GI/Abdominal exam: Present: soft, normal bowel sounds, hernia (Left fist-sized inguinal hernia without discoloration or tenderness). Absent: distended, tenderness, guarding, rebound, rigid Extremities exam: Present: normal inspection, full ROM, normal capillary refill. Absent: tenderness, pedal edema, joint swelling, calf tenderness Back exam: Present: normal inspection Neurological exam: Present: alert, oriented X3, CN II-XII intact Psychiatric exam: Present: normal affect, normal mood Skin exam: Present: warm, dry, intact, normal color. Absent: rash Course Vital Signs 09/22/24 13:18 Temperature 98.1 F Pulse Rate 90 Respiratory 20 Rate Blood Pressure 121/86 O2 Sat by Pulse 99 Oximetry Medical Decision Making - Medical Decision Making Was pt. sent in by a medical professional or institution (, PA, MICROBIOLOGY QUALITY CONTROL TECHNICIAN, urgent care, hospital, or skilled nursing...) When possible be specific @ -No Did you speak to anyone other than the patient for history (EMS, parent, family, police, friend...)? What history was obtained from this source @ -No Did you review nursing and triage notes (agree or disagree)? Why? @ -I reviewed and agree with nursing and triage notes Were old charts reviewed (outside hosp., previous admission, EMS record, old EKG, old radiological studies, urgent care reports/EKG's, skilled nursing records)? Report findings @ -No old charts were reviewed Differential Diagnosis (chest pain, altered mental status, abdominal pain women, abdominal pain men, vaginal bleeding, weakness, fever, dyspnea, syncope, headache, dizziness, GI bleed, back pain, seizure, CVA, palpatations, mental health, musculoskeletal)? @ -Differential Abdominal Pain Men: Appendicitis, cholecystitis, diverticulosis, ischemic bowel, pancreatitis, hepatitis, UTI, gastroenteritis, AAA, incarcerated hernia, bowel obstruction, constipation, inflammatory bowel, hepatitis, peptic ulcer disease, splenic infarction, perforated viscus, testicular torsion, this is not meant to be an all-inclusive list EKG interpreted by me (3pts min.). @ -Not done X-rays interpreted by me (1pt min.). @ -None done CT interpreted by me (1pt min.). @ -Abdominal/pelvic CT reviewed reveals nonstrangulated left inguinal hernia. Diffuse diverticulosis also noted U/S interpreted by me (1pt. min.). @ -None done What testing was considered but not performed or refused? (CT, X-rays, U/S, labs)? Why? @ -None What meds were considered but not given or refused? Why? @ -None Did you discuss the management of the patient with other professionals (professionals i.e. , PA, MICROBIOLOGY QUALITY CONTROL TECHNICIAN, lab, RT, psych nurse, social media executive, hot iron worker, teacher, chairman president and chief executive officer, employment case manager)? Give summary @ -No Was smoking cessation discussed for >3mins.? @ -No Was critical care preformed (if so, how long)? @ -No Were there social determinants of health that impacted care today? How? (Homelessness, low income, unemployed, alcoholism, drug addiction, transportation, low edu. Level, literacy, decrease access to med. care, [facility], rehab)? @ -No Was there de-escalation of care discussed even if they declined (Discuss DNR or withdrawal of care, Hospice)? DNR status @ -No What co-morbidities impacted this encounter? (DM, HTN, Smoking, COPD, CAD, Cancer, CVA, ARF, Chemo, Hep., AIDS, mental health diagnosis, sleep apnea, morbid obesity)? @ -Dementia Was patient admitted / discharged? Hospital course, mention meds given and route, prescriptions, significant lab abnormalities, going to OR and other pertinent info. @ -Discharge. CT scan reveals inguinal hernia without strangulation or indications of gangrene. Patient advised to avoid straining or heavy lifting. Advised follow-up with general surgery for definitive treatment. Undiagnosed new problem with uncertain prognosis? @ -No Drug Therapy requiring intensive monitoring for toxicity (Heparin, Nitro, Insulin, Cardizem)? @ -No Were any procedures done? @ -No Diagnosis/symptom? @ -Inguinal hernia without strangulation or gangrene Acute, or Chronic, or Acute on Chronic? @ -Acute Uncomplicated (without systemic symptoms) or Complicated (systemic symptoms)? @ -Uncomplicated Side effects of treatment? @ -No Exacerbation, Progression, or Severe Exacerbation? @ -No Poses a threat to life or bodily function? How? (Chest pain, [place], [place], pneumonia, PE, COPD, DKA, ARF, appy, cholecystitis, CVA, Diverticulitis, Homicidal, Suicidal, threat to staff... and all critical care pts) @ -No Disposition Clinical Impression: Inguinal hernia of left side without obstruction or gangrene Disposition: HOME SELF-CARE Condition: Good Instructions (If sedation given, give patient instructions): Inguinal Hernia (ED) Additional Instructions: Follow-up with primary care for referral to general surgery for repair. Return to ER if constipation, worsening abdominal pain or overlying color change occurs. Is patient prescribed a controlled substance at d/c from ED?: No Referrals: Jayda Sarabia MD [Primary Care Provider] - 1-2 days Time of Disposition: 15:21
[2024-09-22 13:20] VITALS: BP 121/86; PULSE 90; RESP 20; TEMP 98.1
--- NOTE | 2024-09-22 14:13 | CT ---
EXAMINATION TYPE: CT abdomen pelvis wo con DATE OF EXAM: 09/22/2024 2:03 PM COMPARISON: Previous CT abdomen/pelvis 11/20/2018. CLINICAL INDICATION: Male, 74 years old with history of Left lower abdomen external mass growing larg er; LLQ EXTERNAL MASS GROWING LARGER OVER LAST 8 DAYS TECHNIQUE: Axial CT abdomen pelvis wo con;Sagittal and coronal reformats were created on a separate workstation. Oral contrast used: without Oral Contrast CT DLP: 499.9 mGycm, Automated exposure control for dose reduction was used. FINDINGS: Partially visualized lower lungs demonstrate no acute pathology. Liver unremarkable. Gallbladder unre markable. Spleen normal in size and morphology. No suspicious adrenal gland nodule. Pancreas without evidence of ductal dilatation. Simple cyst in the superior right kidney. No evidence of nephrolithias is or hydronephrosis bilaterally. Imaging through the gastrointestinal tract demonstrates diffuse colonic diverticulosis. There is a le ft inguinal hernia containing nonobstructed portion of the sigmoid colon (series 3 image 80). Remaini ng portions of the bowel demonstrate no evidence of obstruction. Small hiatal hernia. Stomach underdi stended but otherwise unremarkable. No evidence of significant free air or free fluid in the abdomen or pelvis. Chest x-ray disease of th e abdominal aorta without aneurysmal dilatation. Urinary bladder under distended. Central prostate gl and calcifications noted. No acute fracture or aggressive osseous lesion. Lumbosacral spinal degenera tive changes with dextroconvex curvature centered at L3-L4. IMPRESSION: 1. No acute abnormality in the abdomen/pelvis. 2. Left inguinal hernia containing fat and nonobstructed sigmoid colon. 3. Colonic diverticulosis without acute diverticulitis. 4. Additional nonacute findings as above. [facility], , 09/22/2024 2:11 PM
== END 2024-09-22 16:14 | disposition home or self-care (01) ==
LOC: EC 12:25
DX: K57.30 Diverticulosis of large intestine without perforation or abscess without bleeding (principal); K40.90 Unilateral inguinal hernia, without obstruction or gangrene, not specified as recurrent; F03.90 Unspecified dementia, unspecified severity, without behavioral disturbance, psychotic disturbance, mood disturbance, and anxiety; Z90.89 Acquired absence of other organs
CPT/HCPCS: 74176; 99284

== ENCOUNTER 2024-10-22 07:55 | Day surgery (SDC) | payer MEDICARE, OTHER ==
[~2024-10-22 07:55] MED LIST: ACETAMINOPHEN TAB 500 MG TAB PO PRN; HYDROmorphone 0.5 MG/0.5 ML SYRINGE IVP PRN; LACTATED RINGERS 1,000 ML IV SCH
[2024-10-22] MEDS: IV FLUID CONTINUATION 1,000 ML IV ONE ×2 (08:23→09:47)
[2024-10-22 08:33] LABS: Basophils % (A) 0 %; Eosinophils # (A) 0.2 k/uL (0-0.7); Eosinophils % (A) 1 %; HCT 43.8 % (39.0-53.0); HGB 14.1 gm/dL (13.0-17.5); Lymphocytes # (A) 2.2 k/uL (1.0-4.8); Lymphocytes % (A) 17 %; MCH 28.2 pg (25.0-35.0); MCHC 32.1 g/dL (31.0-37.0); MCV 87.6 fL (80.0-100.0); Monocytes # (A) 0.5 k/uL (0-1.0); Monocytes % (A) 4 %; Neutrophils # (A) 9.8 k/uL (1.3-7.7); Neutrophils % (A) 75 %; Platelet Count 194 k/uL (150-450); RDW 13.9 % (11.5-15.5)
[2024-10-22] MEDS: ONDANSETRON 4 MG/2 ML VIAL IVP ONE (08:34)
[2024-10-22] MEDS: DEXAMETHASONE SOD PHOSPHATE 4 MG/ML 1 ML VIAL IV ONE (08:34)
[2024-10-22] MEDS: HEPARIN SODIUM,PORCINE 5,000 UNIT/ML 1 ML VIAL SQ PRN (08:34)
[2024-10-22] MEDS ORDERED: PROPOFOL 10 MG/ML 20 ML VIAL IV ONE (08:45)
[2024-10-22] MEDS ORDERED: fentaNYL (PF) 50 MCG/ML 2 ML AMP ONE (08:45)
[2024-10-22] MEDS ORDERED: PHENYLEPHRINE-0.9% NACL SYG 1,000 MCG/10 ML SYRINGE ONE (08:45)
[2024-10-22] MEDS ORDERED: MIDAZOLAM 2 MG/2 ML VIAL ONE (08:45)
[2024-10-22 08:51] LABS: ALT 56 U/L (4-49); AST 51 U/L (17-59); African American GFR (CKD) 78 (>60 ml/min/1.73 sqM); Albumin 4.3 g/dL (3.5-5.0); Alkaline Phosphatase 89 U/L (38-126); Anion Gap 9 mmol/L; Blood Urea Nitrogen 13 mg/dL (9-20); Calcium 9.1 mg/dL (8.4-10.2); Carbon Dioxide 25 mmol/L (22-30); Chloride 106 mmol/L (98-107); Glucose 112 mg/dL (74-99); Non-African American GFR(CKD) 67 (>60 ml/min/1.73 sqM); Potassium 4.2 mmol/L (3.5-5.1); Sodium 140 mmol/L (137-145); Total Bilirubin 0.6 mg/dL (0.2-1.3); Total Protein 6.7 g/dL (6.3-8.2)
[2024-10-22] MEDS: BUPIVACAINE (PF) 0.25% 30 ML VIAL SQ ONE (09:28)
--- NOTE | 2024-10-22 09:58 | P.OP ---
Date of Procedure: 10/22/24 Preoperative Diagnosis: left inguinal hernia Postoperative Diagnosis: left inguinal hernia Procedure(s) Performed: open repair of left inguinal hernia with Prolene hernia mesh system plug Excision of cord lipoma Anesthesia: [place] Surgeon: Juan R Hernandez Pathology: none sent Condition: stable Disposition: PACU Description of Procedure: DESCRIPTION OF PROCEDURE: The patient was placed in the supine position after receiving adequate anesthesia. Patients groin was prepped and draped in the usual sterile fashion. A standard hernia incision was made and the subcutaneous tissues were divided with electrocautery. The fascia of the external oblique was exposed. A brennan the fascia was made with #15 blade. The fascia was then opened with pair of Metzenbaum scissors. A Weitlaner retractor was placed in the wound and the cord structures were grasped and dissected free from the inguinal canal. A rubber Lali drain was placed around the cord structures. the cord lipoma was dissected free sent to pathology.The hernial sac was seen on the anterior-medial portion of the cord and this was dissected free from the cord. The hernia sac was then invaginated to the peritoneal cavity. Using blunt finger dissection, the preperitoneal space was dissected and then the Prolene hernial mesh plug was placed into the prepared space. The inferior leaf was expanded. The superior leaf was secured to the pubic tubercle using 2-0 Prolene suture. The lateral portion of the superior leaf was incised and cords tied and secured to the transversalis fascia using 2-0 Prolene suture. Fascia of the external oblique was then closed using #0 Vicryl suture. The Lali drain was removed. The Scarpas fascia was then closed with 3-0 Vicryl suture and skin was closed with sarah. The patient tolerated the procedure well.
[2024-10-22 10:02] VITALS: TEMP 97.2
[2024-10-22 10:19] VITALS: RESP 14
[2024-10-22] MEDS: IBUPROFEN 600 MG TAB PO STA (10:45)
[2024-10-22 10:54] VITALS: BP 117/73; PULSE 68
[2024-10-22] MEDS: LACTATED RINGERS 1,000 ML IV ONE (10:57)
== END 2024-10-22 12:01 | disposition home or self-care (01) ==
LOC: OR 07:55
PROVIDERS: ATTEND Surgery
DX: K40.90 Unilateral inguinal hernia, without obstruction or gangrene, not specified as recurrent (principal); I10 Essential (primary) hypertension; E78.5 Hyperlipidemia, unspecified; I45.6 Pre-excitation syndrome; C44.90 Unspecified malignant neoplasm of skin, unspecified; G30.9 Alzheimer's disease, unspecified; F02.80 Dementia in other diseases classified elsewhere, unspecified severity, without behavioral disturbance, psychotic disturbance, mood disturbance, and anxiety; Z79.02 Long term (current) use of antithrombotics/antiplatelets; Z79.899 Other long term (current) drug therapy
CPT/HCPCS: 49505; 88304; 80053; 85025; C1781; J2250; J1644; J1100; J0690; J2405; J3010; J2704; J2371; J0665